=== PATIENT | female | born 1960 ===

== ENCOUNTER → 2021-02-23 08:40 | Outpatient (CLI) | payer BC, SELFPAY ==
--- NOTE | ~2021-02-23 | CT_ITS ---
EXAMINATION: CT chest abdomen pelvis w con DATE: 02/23/2021 09:26 INDICATION: Abnormal weight loss. Left scapular pain. TECHNIQUE: Computed tomography (CT) of the chest, abdomen, and pelvis was performed with 100 mL Omnip aque-350 intravenous contrast. Automated exposure control and iterative reconstruction technique were employed. The dose-length product was 887.90 mGy-cm. COMPARISON: None FINDINGS: CHEST CT: Lungs are clear with no suspicious pulmonary nodules, pneumonia, pulmonary edema or pleural effusion. Heart size is normal. No pericardial effusion. Thoracic aorta is normal in caliber with no dissectio n. No pathologically enlarged abdominal or pelvic lymphadenopathy. Mild degenerative skeletal changes in the thoracic spine and bilateral acromioclavicular joints. No evident abnormality identified at t he left scapula or periscapular soft tissues. ABDOMEN/PELVIS CT: Diffuse hepatic steatosis with more focal fat at the ligamentum teres. Gallbladder, pancreas, spleen, bilateral adrenal glands and kidneys are normal. Bowels are unremarkable with no wall thickening or obstruction. Bladder, anteverted uterus and bilateral adnexa are unremarkable. No free intraperitonea l gas or fluid. No pathologically enlarged abdominal or pelvic lymphadenopathy. Severe disc height lo ss at L5-S1. IMPRESSION: 1. No evident malignancy or acute intrathoracic, abdominal or pelvic process. Reviewed, dictated and finalized at location A. [employer]
[2021-02-23 09:11] LABS: Estimated Glomerular Filt Rate > 60
== END ==
PROVIDERS: Visit Provider Internal Medicine
DX: R63.4 Abnormal weight loss (principal)
CPT/HCPCS: 71260; 74177; Q9967